=== PATIENT | female | born 1960 | race African-American/Black ===

== ENCOUNTER 2016-07-27 11:15 | Inpatient (IN) ==
--- NOTE | 2016-07-27 12:29 | Emergency Department Note ---
Arrival - Arrival Chief Complaint: Extremity Injury Stated Complaint: foot swollen and sore ED Nursing Triage Note: left foot pain - pt states that she dropped a cam on her foot on July 06 rd - pt amb into triage Mode of Arrival: Ambulatory Limitations: No Limitations Source: Patient, RN Notes Reviewed Time Seen by Provider: 07/27/16 11:52 - History of Present Illness HPI Narrative: 56-year-old black female presents to ED with chief complaint of left foot pain. Patient states she dropped a large can of green beans on her foot on July 06. She has not had any treatment since then. States that it started looking worse on Monday, so she sought treatment today. Previous medical history significant for hypertension and insulin-dependent diabetes mellitus. PCP is [facility]. Date of Last Menstrual Period: hyster Allergies/Adverse Reactions: Allergies Allergy/AdvReac Type Severity Reaction Status Date / Time No Known Allergies Allergy Unverified 07/27/16 11:17 Review of System - Review of System 12 point system: reviewed and no additional remarkable complaints except as stated - Review of System Constitutional: Absent: fever Musculoskeletal: Present: as per HPI, other (Left foot pain) Skin: Present: as per HPI, change in color Medical,Surgical,& Family Hx - Medical History Cardio: History of: Hypertension Endocrine: History of: Diabetes Mellitus (IDDM) - Social History Smoking Status: Never smoker Frequency of Alcohol Use: None Type of Drug Use: None Exam Physical Examination: - General General appearance: alert, in no apparent distress - Head Head exam: Present: atraumatic, normocephalic, normal inspection - Eye Eye exam: Present: normal appearance, PERRL, EOMI - Neck Neck exam: Present: normal inspection, full ROM - Chest Chest inspection: Present: normal appearance, symmetric chest rise - Respiratory Respiratory exam: Present: normal lung sounds bilaterally. Absent: accessory muscle use, rales, respiratory distress, rhonchi, wheezes - Cardiovascular Cardiovascular exam: Present: regular rate, normal rhythm, normal heart sounds - Abdominal Exam Abdominal exam: Present: soft, normal bowel sounds - Extremities Exam Extremities exam: Present: Distal area of left foot with multiple ulcers, skin has peeled off, second toe becoming gangrenous, toe is soft to palpation, no circulation present. - Back Exam Back exam: Present: normal inspection, full ROM - Neurological Exam Neurological exam: Present: alert, oriented X3 Absent: motor sensory deficit - Psychiatric Psychiatric exam: Present: normal affect, normal mood - Skin Skin exam: Present: warm, dry, intact Vital Signs: Vital Signs Temperature 97.8 F 07/27/16 11:25 Pulse Rate 98 H 07/27/16 11:25 Respiratory Rate 20 07/27/16 11:25 Blood Pressure 140/98 07/27/16 11:25 O2 Sat by Pulse Oximetry 99 07/27/16 11:18 Course - Consultations Time: 13:14 (Kristi at Dr. Rothman's office notified of patinet presence and status. Dr. Rothman wants general surgery to handle case.) Time: 13:20 (Dr. Stoll notified of pt presence and status.) Time: 13:40 (Rivera (Dr. Dunn's PA) here to see patient. ) Additional Consultation(s): 1440: Dr. Stoll here to see patient. Will admit and take to surgery. Results - Labs CBC & BMP: 07/27/16 13:29 07/27/16 13:29 Lab Results: I have reviewed the patients labs - Diagnostic Findings Procedure: X-ray: report reviewed by me, image reviewed by me (Subtle subcutaneous emphysema within the interspace of the first and second digits suspicious for laceration or infection. No radiopaque foreign body demonstrated. No acute fracture demonstrated. There is flexion deformity at the DIP joint of the second digit. Plantar calcaneal spurring noted.) Disposition Clinical Impression: Diabetic wet gangrene of the foot Case discussed with: patient Disposition: Still a Patient Condition: Stable
--- NOTE | 2016-07-27 12:38 | XRay Report ---
XR foot 3V LT Indication: Injury Comparison: None Technique: Frontal, lateral, and oblique views of the left foot Findings: Subtle subcutaneous emphysema within the interspace of the first and second digits suspicious for laceration or infection. No radiopaque foreign body demonstrated. No acute fracture demonstrated. There is flexion deformity at the DIP joint of the second digit. Plantar calcaneal spurring noted. IMPRESSION: As above. PROCEDURE INTERPRETED AT [facility] DEPARTMENT OF RADIOLOGY Final Report Signed by: Dr Barrett Torres
[2016-07-27 13:38] LABS: Basophils # 0.1 10*3/uL (0.0-0.2); Basophils % 0.5 % (0.0-0.8); Eosinophils # 0.1 10*3/uL (0.0-0.87); Hematocrit 32.6 VOL% (35.7-47.0); Hemoglobin 10.9 GM/DL (12.0-16.0); Immature Granulocytes % 1.1 %; Immature Granulocytes Absolute 0.11 #; Lymphocytes # 1.6 10*3/uL (1.4-4.0); Lymphocytes % 15.5 % (21.3-54.2); Mean Corpuscular HGB Conc 33.4 GM/DL (32-36); Mean Corpuscular Hemoglobin 30 PG (27-34); Mean Corpuscular Volume 89.6 FL (87-102); Mean Platelet Volume 9.2 FL (9.6-12.0); Monocytes # 0.7 10*3/uL (0.11-0.8); Monocytes % 6.6 % (1.7-12.7); Neutrophils # 7.7 10*3/uL (1.4-7.4); Neutrophils % 75.3 % (38.7-73.9); Platelet Count 463 T/CUMM (130-400); Red Blood Count 3.64 MC/CUMM (3.8-5.5); Red Cell Distribution Width 12.6 % (9.3-17.3); White Blood Count 10.2 T/CUMM (4-12)
[2016-07-27 14:03] LABS: Alanine Aminotransferase 14 U/L (13-56); Albumin 2.9 G/DL (3.4-5.0); Alkaline Phosphatase 112 U/L (45-117); Aspartate Amino Transferase 10 U/L (0-37); Bilirubin,Total < 0.39 MG/DL (0.2-1.0); Blood Urea Nitrogen 13 MG/DL (7-18); Calcium 9.1 MG/DL (8.5-10.1); Glucose 482 MG/DL (74-106); Osmolality,Calculated 282.7 MOS/KG (273-304); Potassium 4.1 MMOL/L (3.5-5.1); Sodium 131 MMOL/L (136-145); Total Protein 9.1 G/DL (6.4-8.3)
--- NOTE | 2016-07-27 14:23 | XRay Report ---
XR chest 2V Indication: Recent pneumonia Comparison: Chest x-ray dated July 19, 2010 Technique: Frontal and lateral views of the chest. Findings: The cardiomediastinal silhouette is stable in configuration. No focal consolidation, pleural effusion, or pneumothorax. Visualized osseous and surrounding soft tissue structures appear grossly unchanged. Continued dextroconvex curvature of the spine. IMPRESSION: Stable chest x-ray without acute cardiopulmonary process demonstrated. PROCEDURE INTERPRETED AT [facility] DEPARTMENT OF RADIOLOGY Final Report Signed by: Dr Barrett Torres
[2016-07-27] MEDS ORDERED: SODIUM CHLORIDE 0.9% 1,000 ML IV STA (14:25)
--- NOTE | 2016-07-27 14:31 | General Surg History&Physical ---
Assessment and Plan (1) Diabetic wet gangrene of the foot Status: Acute Assessment and plan: Patient has wet gangrene of the second toe and abscess formation of the proximal second toe suspected track into the first webspace. At this point, surgical intervention is recommended to prevent further progression of the infection and or destruction of soft tissue which may result in more loss of the foot. Patient will require at least partial second toe amputation perhaps total as well as irrigation and debridement of abscess formation of the left foot. The indications for the procedure as well as the alternative treatment options were reviewed with patient including but limited to worsening infection , further loss of foot and lower extremity, blood infection, functional loss, gait disturbance, wound healing complications, the need for further procedures, reactions to medications, pneumonia, heart attack, stroke, pneumothorax, hemothorax, and other unforeseeable cardiac, pulmonary and/or neurologic including the risk of . We will check a chest x-ray prior considering her recent pneumonia and I recommend aggressive incentive spirometry and mobility postoperatively. Current Visit: Yes (2) Hyperglycemia due to type 2 diabetes mellitus Status: Acute Assessment and plan: Patient with hyperglycemia with reported well-controlled diabetes mellitus in a seemingly reliable patient. Treating factors are likely in this active infection as well as recent corticosteroid treatment. We will push normal saline and provide sliding scale insulin to try to get his blood sugars better controlled. Current Visit: Yes (3) Hyponatremia Status: Acute Assessment and plan: Likely pseudohyponatremia secondary to hyperglycemia. Treat with IV fluids and monitor as above. Current Visit: Yes (4) Elevated serum creatinine Status: Acute Assessment and plan: No comparison labs. May be chronic considering patient's history of diabetes hypertension or acute. We will hydrate, avoid nephrotoxic agents, and monitor renal function, electrolytes, and urine output. Current Visit: Yes (5) Hypertension Status: Acute Assessment and plan: Resume home meds postoperatively Current Visit: Yes (6) Prophylactic measure Status: Acute Assessment and plan: #1 DVT prophylaxis: SCDs intra-and postoperatively. Start chemoprophylaxis postop day #1 with out evidence of active bleeding. #2. GI prophylaxis: PPI daily Current Visit: Yes History of Present Illness Chief complaint: Toe pain History of present illness: Ms. Vasquez is a 56 year old female with past medical history of hypertension and insulin-dependent diabetes mellitus who reports she dropped a can of green beans in her left foot on July 06, 2016. She subsequently had pain and swelling which have slowly resolved until a few days ago at which time she noted increased swelling, erythema, and pain as well as discoloration associated with the left foot. She denies fever, chills, rigors, nausea, vomiting or diarrhea. She denies previous foot infection or problems with diabetic ulcers of her feet although she does report bilateral peripheral neuropathy. She reports her fasting blood glucose levels typically run in the low 100s below 150, although they have been higher in the past few days, which she attributes to infection as well as recent corticosteroid treatment. She did recently complete treatment for pneumonia approximately 4 days ago which included azithromycin, in office injection of Rocephin and corticosteroid injection. She reports mild residual cough without production, dyspnea, or pleuritic chest pain. Patient has no cardiac history or complaints of chest pain, palpitations, orthopnea or PND. 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 Absent: distended, firm , tenderness - Extremities Exam Extremities exam: Present: other (LLE: Gangrene noted with the left second toe with purulence evident from the second toe into the first webspace which is expressible. This likely tracks on the plantar surface of the forefoot just proximal to the third and fourth toes with which have associated erythema. Great toe erythema is also associated. There is also noted in the first webspace which is likely where the abscesses attempted to drain from. Dorsalis pedis pulses are 1+. Brisk capillary refill was noted in toes 1, and 3 through 5; again the second great toe of the middle and distal phalanges are not likely viable. ) - Neurological Exam Neurological exam: Present: alert, oriented X3 Speech: Present: normal - Skin Skin exam: Present: normal color, warm - Constitutional Constitutional: Present: as per HPI - Cardiovascular Cardiovascular: Present: as per HPI - Respiratory Respiratory: Present: as per HPI - Gastrointestinal Gastrointestinal: Present: as per HPI - Musculoskeletal Musculoskeletal: Present: as per HPI - Neurological Neurological: Present: as per HPI Hematologic/Lymphatic: Absent: easy bleeding, easy bruising Results - Labs CBC & BMP: 07/27/16 13:29 07/27/16 13:29 Labs: Lactic acid pending - Diagnostic Findings Procedure: X-ray: image reviewed by me, report reviewed by me (Foot - soft tissue evidence of abscess in 1st webspace; no clear evidence of osteomyelitis)
[2016-07-27] MEDS ORDERED: CEFTAROLINE 600 MG in SODIUM CHLORIDE 0.9% 100 ML IV STA (14:42)
[2016-07-27] MEDS ORDERED: SODIUM CHLORIDE 0.9% 1,000 ML IV SCH (15:00)
[2016-07-27] MEDS ORDERED: INSULIN REGULAR 100 UNIT/ML SUBCUT STA (15:17)
[2016-07-27] MEDS ORDERED: INSULIN REGULAR 100 UNIT/ML ONE (15:18)
[2016-07-27] MEDS ORDERED: CEFTAROLINE 600 MG VIAL IV ONE (15:22)
[2016-07-27] MEDS ORDERED: SODIUM CHLORIDE 0.9% 100 ML IV ONE (15:23)
[2016-07-27] MEDS ORDERED: LIDOCAINE 1% 5 ML VIAL ONE (18:30)
[2016-07-27] MEDS ORDERED: KETOROLAC 30 MG/1 ML VIAL ONE (18:30)
[2016-07-27] MEDS ORDERED: PHENYLEPHRINE 1 MG/10 ML SYRINGE IV ONE (18:30)
[2016-07-27] MEDS ORDERED: PROPOFOL 200 MG/20 ML VIAL IV ONE (18:30)
[2016-07-27] MEDS ORDERED: ONDANSETRON 4 MG/2 ML VIAL ONE (18:30)
[2016-07-27] MEDS ORDERED: BUPIVACAINE 0.25% 50 ML VIAL ONE (18:31)
--- NOTE | 2016-07-27 19:21 | Anesthesia Post-Op ---
Anesthesia Post OP - Post Ansesthetic Evaluation Patient seen in post op: Yes Resp: within normal limits CV: within normal limits Mental: within normal limits Temp: within normal limits [id number]: within normal limits Nausea and Vomiting: within normal limits Pain: within normal limits
[2016-07-27] MEDS ORDERED: SEVOFLURANE 1 UNIT/15 MINUTE INH ONE (19:25)
[2016-07-27] MEDS ORDERED: LACTATED RINGERS 1,000 ML IV ONE (19:26)
[2016-07-27] MEDS ORDERED: fentaNYL 100 MCG/2 ML VIAL ONE (19:26)
[2016-07-27] MEDS ORDERED: MIDAZOLAM 2 MG/2 ML VIAL ONE (19:26)
--- NOTE | 2016-07-27 19:43 | Operative Note ---
Date of procedure: 07/27/16 Pre-op diagnosis: Left second toe wet gangrene Post-op diagnosis: same Procedure: Preoperative diagnosis Left second toe wet gangrene Postoperative diagnosis Same Procedures performed Left second toe toe ray amputation Findings Left second toe wet gangrene with viable tissue at the base of the toe and second metatarsal head. Complications None apparent Specimen Left second toe Blood loss 10 mL Indications Left second toe wet gangrene. The risks, benefits, and alternatives of the operation were discussed with the patient and family. The risk of phantom pain and need for higher amputation were discussed in detail and elected to proceed. Their questions were answered. Description of procedure Patient was taken to the operating room and transferred to the operating table in the supine position. The left leg was prepped with Betadine and draped sterilely. Preoperative antibiotics were administered and timeout was performed. Local anesthetic was administered around the left second toe. An elliptical skin incision was then made with a 15 blade scalpel and the toe was amputated at the metatarsal phalangeal joint. There was viable tissue at the margins of the wound. There was good blood supply. A rongeur was used to debride the bone back past the capsule of the metatarsal head. The foot was dressed with dry gauze dressing between the toes, cast padding, and Coban. The patient was awakened from anesthesia and transferred to recovery. Postoperative plan Continue wound care and antibiotics Follow-up cultures Anesthesia: ANDREIAA Surgeon / Physician: Minh Stoll Estimated blood loss: minimal Specimens: other (left second toe) Condition: stable Disposition: PACU Results - Labs CBC & BMP: 07/27/16 13:29 07/27/16 13:29
[2016-07-27] MEDS ORDERED: GLUCAGON 1 MG VIAL IM PRN ×2 (19:57)
[2016-07-27] MEDS ORDERED: PROMETHAZINE 25 MG/1 ML VIAL IM PRN (19:57)
[2016-07-27] MEDS ORDERED: ONDANSETRON 4 MG/2 ML VIAL IV PRN (19:57)
[2016-07-27] MEDS ORDERED: HYDROmorphone 2 MG/1 ML VIAL IV PRN (19:57)
[2016-07-27] MEDS ORDERED: DEXTROSE 50% 25 GM/50 ML VIAL IV PRN ×2 (19:57)
[2016-07-27] MEDS: LACTATED RINGERS 1,000 ML IV SCH (20:00)
[2016-07-27] MEDS: INSULIN REGULAR 100 UNIT/ML SUBCUT SCH (21:59)
[2016-07-28] MEDS: LACTATED RINGERS 1,000 ML IV SCH (04:00)
[2016-07-28] MEDS ORDERED: NON-FORMULARY MEDICATION (Empagliflozin [Jardiance] 10 MG) PO SCH (09:00)
[2016-07-28 09:18] LABS: Basophils % 0.4 % (0.0-0.8); Eosinophils # 0.1 10*3/uL (0.0-0.87); Eosinophils % 1.6 % (0.00-10.9); Hematocrit 29.4 VOL% (35.7-47.0); Hemoglobin 9.6 GM/DL (12.0-16.0); Immature Granulocytes % 0.7 %; Immature Granulocytes Absolute 0.05 #; Lymphocytes # 1.3 10*3/uL (1.4-4.0); Lymphocytes % 18.7 % (21.3-54.2); Mean Corpuscular HGB Conc 32.7 GM/DL (32-36); Mean Corpuscular Hemoglobin 29 PG (27-34); Mean Corpuscular Volume 89.9 FL (87-102); Mean Platelet Volume 9.1 FL (9.6-12.0); Monocytes # 0.3 10*3/uL (0.11-0.8); Monocytes % 4.7 % (1.7-12.7); Neutrophils % 73.9 % (38.7-73.9); Platelet Count 398 T/CUMM (130-400); Red Blood Count 3.27 MC/CUMM (3.8-5.5); Red Cell Distribution Width 12.7 % (9.3-17.3); White Blood Count 6.8 T/CUMM (4-12)
[2016-07-28 09:43] LABS: Potassium 4.4 MMOL/L (3.5-5.1)
[2016-07-28] MEDS: INSULIN REGULAR 100 UNIT/ML SUBCUT SCH ×4 (09:43→22:27)
[2016-07-28] MEDS: VALSARTAN 160 MG TABLET PO SCH (09:45)
[2016-07-28] MEDS: GABAPENTIN 400 MG CAPSULE PO SCH ×2 (09:46→22:32)
[2016-07-28] MEDS: hydroCHLOROthiazide 12.5 MG CAPSULE PO SCH (09:46)
[2016-07-28] MEDS: MONTELUKAST 10 MG TABLET PO SCH (09:46)
[2016-07-28] MEDS: CEFTAROLINE 600 MG in SODIUM CHLORIDE 0.9% 100 ML IV SCH ×2 (09:57→22:26)
--- NOTE | 2016-07-28 12:14 | Event Note ---
General Surgery Progress Note Chief complaint This patient is a 56-year-old woman admitted with a wet gangrene of the left second toe treated with ray amputation on 07/27/2016 Interval history No events overnight. Glucose is 189 on the last CBG. No labs were done this morning. Patient is afebrile and her pain is well controlled. Physical exam Afebrile, normal vital signs Chest is clear Heart is regular Abdomen is soft and nontender Left foot amputation site is clean. There is some slightly onofre tissue at the base of the wound but most of it bleeds well and there is no evidence of pus or undrained infection. There is no vijaya necrotic tissue. Labs Pending, CBG 189 Imaging None new Assessment and plan Continue wound care and antibiotics Follow-up labs today Repeat labs tomorrow and monitor wound for 1 more day Home health consult
[2016-07-28] MEDS: ENOXAPARIN 40 MG/0.4 ML SYRINGE SUBCUT SCH (14:16)
[2016-07-28] MEDS ORDERED: INSULIN DEGLUDEC 10 UNIT SQ SCH (21:00)
[2016-07-29 06:55] LABS: Basophils % 0.7 % (0.0-0.8); Eosinophils # 0.2 10*3/uL (0.0-0.87); Eosinophils % 3.2 % (0.00-10.9); Hematocrit 28.2 VOL% (35.7-47.0); Hemoglobin 9.2 GM/DL (12.0-16.0); Immature Granulocytes % 0.7 %; Immature Granulocytes Absolute 0.04 #; Lymphocytes # 1.8 10*3/uL (1.4-4.0); Lymphocytes % 31.4 % (21.3-54.2); Mean Corpuscular HGB Conc 32.6 GM/DL (32-36); Mean Corpuscular Hemoglobin 29 PG (27-34); Mean Corpuscular Volume 89.8 FL (87-102); Mean Platelet Volume 9.2 FL (9.6-12.0); Monocytes # 0.4 10*3/uL (0.11-0.8); Monocytes % 7.5 % (1.7-12.7); Neutrophils # 3.3 10*3/uL (1.4-7.4); Neutrophils % 56.5 % (38.7-73.9); Platelet Count 389 T/CUMM (130-400); Red Blood Count 3.14 MC/CUMM (3.8-5.5); Red Cell Distribution Width 12.6 % (9.3-17.3); White Blood Count 5.9 T/CUMM (4-12)
[2016-07-29 07:34] LABS: Calcium 8.1 MG/DL (8.5-10.1); Magnesium 2.4 MG/DL (1.8-2.4); Osmolality,Calculated 276.4 MOS/KG (273-304); Potassium 4.3 MMOL/L (3.5-5.1)
--- NOTE | 2016-07-29 09:11 | Event Note ---
General Surgery Progress Note Chief complaint This patient is a 56-year-old woman admitted with a wet gangrene of the left second toe treated with ray amputation on 07/27/2016 Interval history No events overnight. Pain is well controlled. No fevers. Labs are stable. Physical exam Afebrile, normal vital signs Chest is clear Heart is regular Abdomen is soft and nontender Left foot amputation site is clean. The wound looks healthy with no necrotic tissue or purulent drainage. Labs Reviewed Imaging None new Assessment and plan Discharge home today with follow-up with me next week. We will have the patient do once daily Dakin's wet to dry dressings and put her on clindamycin and Levaquin until she comes back to see me.
[2016-07-29] MEDS: INSULIN REGULAR 100 UNIT/ML SUBCUT SCH ×2 (09:46→12:58)
[2016-07-29] MEDS: ENOXAPARIN 40 MG/0.4 ML SYRINGE SUBCUT SCH (10:30)
[2016-07-29] MEDS: CEFTAROLINE 600 MG in SODIUM CHLORIDE 0.9% 100 ML IV SCH (10:30)
[2016-07-29] MEDS: GABAPENTIN 400 MG CAPSULE PO SCH (10:41)
[2016-07-29] MEDS: MONTELUKAST 10 MG TABLET PO SCH (10:41)
[2016-07-29] MEDS: VALSARTAN 160 MG TABLET PO SCH (10:42)
[2016-07-29] MEDS: hydroCHLOROthiazide 12.5 MG CAPSULE PO SCH (10:42)
--- NOTE | 2016-07-29 11:11 | Discharge Summary ---
Hospital Course - Hospital Course Hospital Course: The patient is 56 y/o IDDM female who presented with wet gangrene of left 2nd toe for which she underwent debridement and amputation. The patient initially had mild BRIANNA and pseudohyponatremia associated elevated blood glucose which resolved after surger and with fluid resuscitation. No complication in p/o period. Blood cultures preliminarily negative. Patient discharged home in good condition with oral antibiotics, wound care instructions to be performed by spouse, and follow-up planned with Dr. Stoll. Diagnosis - Discharge Diagnosis (1) Diabetic wet gangrene of the foot Status: Acute (2) Hyperglycemia due to type 2 diabetes mellitus Status: Acute (3) Hyponatremia Status: Acute (4) Elevated serum creatinine Status: Acute (5) Hypertension Status: Acute Specialty Discharge - Follow Up or Referrals Follow up with: Minh Stoll MD [Physician] - 08/04/16 9:00 am Discharge Plan - Discharge Data Disposition: Disch To Home/Self Care Condition at Discharge: Stable Discharge Diet: diabetic diet Activity: resume usual activities as tolerated, other (No prolonged standing or ambulating) Hygiene: may shower, keep area(s) dry Driving: other (No driving while taking narcotics) Contact your physician if you experience:: fever over 101, Difficulty voiding, Redness or swelling, Nausea/Vomiting, Shortness of breath, Bleeding, pain uncontrolled by pain medications Wound / Dressing Care Instructions: -Clean wound with dakins daily. -Reapply dakins moistened gauze. -Drape gauze loosely between toes. -Wrap foot with cast padding and nathan wrap - Discharge Medications New Clindamycin HCl [Clindamycin Cap] 300 mg PO Q8HR #21 capsule levoFLOXacin [Levaquin] 500 mg PO DAILY #7 tablet HYDROcodone/ACETAMIN 7.5-325 [Bend 7.5-325] 1 tablet PO Q4H PRN #30 tablet PRN Reason: Pain Moderate To Severe (4-10) Continue Montelukast Tab [Singulair Tab] 10 mg PO DAILY Sitagliptin Phos/Metformin HCl [Janumet 50-500 mg Tablet] 1 each PO BID Insulin Degludec [Tresiba Flextouch U-100] 10 unit SQ BEDTIME Gabapentin [Neurontin] 800 mg PO BID Empagliflozin [Jardiance] 10 mg PO DAILY Valsartan/Hydrochlorothiazide [Diovan Hct 320-12.5 mg Tab] 1 each PO DAILY - Follow Up or Referral Follow Up: Minh Stoll MD [Physician] - 08/04/16 9:00 am - Forms/Instructions Exam - Constitutional Vitals: Period Temp Pulse Resp BP Sys/Mayer Pulse Ox Last 24 Hr 97 F-98.2 F 82-88 16-20 150-160/66-83 96-100 General appearance: no acute distress - Head Head exam: Present: normal inspection, normocephalic - Eye Eye exam: Absent: conjunctival injection, scleral icterus - Respiratory Respiratory exam: Present: clear to auscultation bilaterally - Cardiovascular Cardiovascular exam: Present: regular rate and rhythm - GI/Abdominal GI/Abdominal exam: Present: normal bowel sounds, soft. Absent: tenderness - Neurological Exam Neurological exam: Present: alert, oriented X3 - Psychiatric Psychiatric exam: Present: normal affect, normal mood Discharge Results Procedures and tests throughout hospitalization: Pending Orders 07/27/16 13:45 Blood Culture Stat Blood culture no growth at one day Labs on day of discharge: Labs from last 24 hours 07/29/16 07/29/16 07/28/16 05:54 05:54 18:51 WBC 5.9 RBC 3.14 L Hgb 9.2 L Hct 28.2 L MCV 89.8 MCH 29 MCHC 32.6 RDW 12.6 Plt Count 389 MPV 9.2 L Neut % (Auto) 56.5 Lymph % (Auto) 31.4 [place] % (Auto) 7.5 Eos % (Auto) 3.2 Baso % (Auto) 0.7 Neut # (Auto) 3.3 Lymph # (Auto) 1.8 [place] # (Auto) 0.4 Eos # (Auto) 0.2 Baso # (Auto) 0.0 Immature Gran % 0.7 Nucleated RBC % 0.0 Immature Gran # 0.04 Nucleated RBCs # 0.00 Sodium 140 Potassium 4.3 Chloride 104 Carbon Dioxide 30 Anion Gap 10.3 BUN 8 Creatinine 0.60 GFR Calculation 124 BUN/Creatinine Ratio 13.00 Glucose 101 POC Glucose 269 H Calculated Osmolality 276.4 Calcium 8.1 L Magnesium 2.4 07/28/16 07/28/16 07/28/16 15:40 10:42 07:51 WBC RBC Hgb Hct MCV MCH MCHC RDW Plt Count MPV Neut % (Auto) Lymph % (Auto) [place] % (Auto) Eos % (Auto) Baso % (Auto) Neut # (Auto) Lymph # (Auto) [place] # (Auto) Eos # (Auto) Baso # (Auto) Immature Gran % Nucleated RBC % Immature Gran # Nucleated RBCs # Sodium Potassium Chloride Carbon Dioxide Anion Gap BUN Creatinine GFR Calculation BUN/Creatinine Ratio Glucose POC Glucose 112 H 305 H 240 H Calculated Osmolality Calcium Magnesium 07/27/16 20:14 WBC RBC Hgb Hct MCV MCH MCHC RDW Plt Count MPV Neut % (Auto) Lymph % (Auto) [place] % (Auto) Eos % (Auto) Baso % (Auto) Neut # (Auto) Lymph # (Auto) [place] # (Auto) Eos # (Auto) Baso # (Auto) Immature Gran % Nucleated RBC % Immature Gran # Nucleated RBCs # Sodium Potassium Chloride Carbon Dioxide Anion Gap BUN Creatinine GFR Calculation BUN/Creatinine Ratio Glucose POC Glucose 80 Calculated Osmolality Calcium Magnesium Preliminary micro results at discharge 07/27/16 13:45 Blood Culture - Preliminary Blood No growth at 1 day 07/27/16 13:29 Blood Culture - Preliminary Blood No growth at 1 day - Imaging and Cardiology Procedure: Chest x-ray: image reviewed by me, report reviewed by me, X-ray: image reviewed by me, report reviewed by me (Foot) DS: Provider Date of admission: 07/27/16 14:50 Primary care physician: . No PCP Attending physician on admission: Minh Stoll MD Consults: 07/28/16 08:42 Consult to Case Mgmt/Social Srvs [CONS] Routine Reason for Case Mgmt/Social Srvs: Discharge Planning Consult Comment: home health services - wound care Discharging clinician: Krystal Harrison PA-C
--- NOTE | 2016-07-29 12:18 | Pathology Report from [facility] ---
[facility] ACCESSION # : [id number] PATIENT NAME : Karo Vasquez ORDERING DR : Minh Stoll MD CLINICAL HX: Left foot wet gangrene POST-OP DX: Same SPECIMEN INFO: Left second toe GROSS DESCRIPTION: Received in formalin labeled KARO VASQUEZ is a 5.5 x 1.8 x 3.2 cm portion of toe and distal metatarsal. The skin is markedly thickened and hard , onofre hayes with ulceration and gangrenous changes. Dwarf [employer]er sections are submitted in one cassette. DIAGNOSIS FOR KARO VASQUEZ: LEFT 2nd TOE AMPUTATION: Wet gangrene. COLLECTED DATE: 07/28/2016 [facility] REPORT DATE: 07/29/2016 ELECTRONICALLY SIGNED BY: Reji Quintana III, M.D. 07/29/2016 - 10:35:21 [facility]
[2016-07-29 12:46] VITALS: BP 179/79
== END 2016-07-29 14:10 | disposition home health service (06) | DRG 256 ==
LOC: N.ED 11:15 → N.EDINP 14:50 → N.2E 17:58
PROVIDERS: ADMIT Surgery; ATTEND Surgery

== ENCOUNTER 2018-10-06 22:06 | Inpatient (IN) ==
[2018-10-07 00:01] LABS: Basophils % 0.1 % (0.0-0.8); Hematocrit 28.9 VOL% (35.7-47.0); Hemoglobin 9.2 GM/DL (12.0-16.0); Immature Granulocytes % 0.9 %; Immature Granulocytes Absolute 0.12 #; Lymphocytes # 1.4 10*3/uL (1.4-4.0); Lymphocytes % 10.2 % (21.3-54.2); Mean Corpuscular HGB Conc 31.8 GM/DL (32-36); Mean Corpuscular Volume 91.7 FL (87-102); Mean Platelet Volume 10.1 FL (9.6-12.0); Monocytes % 7.7 % (1.7-12.7); Neutrophils % 81.1 % (38.7-73.9); Platelet Count 196 T/CUMM (130-400); Red Blood Count 3.15 MC/CUMM (3.8-5.5); Red Cell Distribution Width 15.4 % (9.3-17.3); White Blood Count 14.1 T/CUMM (4-12)
[2018-10-07 00:04] LABS: Albumin 3.1 G/DL (3.4-5.0); Bilirubin,Total 0.6 MG/DL (0.2-1.0); Calcium 8.4 MG/DL (8.5-10.1); Osmolality,Calculated 286.3 MOS/KG (273-304); Total Protein 7.1 G/DL (6.4-8.3)
[2018-10-07] MEDS ORDERED: CEFEPIME 2,000 MG in SODIUM CHLORIDE 0.9% 100 ML IV STA ×2 (00:07→00:09)
[2018-10-07] MEDS ORDERED: VANCOMYCIN INJ 1,000 MG in SODIUM CHLORIDE 0.9% 250 ML IV STA (00:07)
[2018-10-07] MEDS ORDERED: ZALEPLON 5 MG CAPSULE PO PRN (00:33)
[2018-10-07] MEDS ORDERED: GLUCAGON 1 MG VIAL IM PRN (00:33)
[2018-10-07] MEDS ORDERED: DEXTROSE 50% 25 GM/50 ML VIAL IV PRN (00:33)
[2018-10-07] MEDS ORDERED: ONDANSETRON 4 MG/2 ML VIAL IV PRN (00:33)
[2018-10-07] MEDS: SODIUM CHLORIDE 0.9% 1,000 ML IV SCH ×2 (02:35→22:40)
[2018-10-07] MEDS: INSULIN REGULAR 100 UNIT/ML SUBCUT SCH ×5 (02:55→21:33)
[2018-10-07 05:59] LABS: Basophils % 0.4 % (0.0-0.8); Eosinophils # 0.1 10*3/uL (0.0-0.87); Eosinophils % 0.5 % (0.00-10.9); Hemoglobin 10.2 GM/DL (12.0-16.0); Immature Granulocytes % 1.1 %; Immature Granulocytes Absolute 0.12 #; Lymphocytes # 2.1 10*3/uL (1.4-4.0); Lymphocytes % 19.8 % (21.3-54.2); Mean Corpuscular HGB Conc 31.9 GM/DL (32-36); Mean Corpuscular Volume 92.2 FL (87-102); Mean Platelet Volume 10.7 FL (9.6-12.0); Monocytes % 7.4 % (1.7-12.7); Neutrophils % 70.8 % (38.7-73.9); Platelet Count 164 T/CUMM (130-400); Red Blood Count 3.47 MC/CUMM (3.8-5.5); Red Cell Distribution Width 14.8 % (9.3-17.3); White Blood Count 10.6 T/CUMM (4-12)
[2018-10-07 06:39] LABS: Albumin 2.9 G/DL (3.4-5.0); Bilirubin,Total 1.7 MG/DL (0.2-1.0); Calcium 8.2 MG/DL (8.5-10.1); Osmolality,Calculated 284.1 MOS/KG (273-304); Total Protein 6.8 G/DL (6.4-8.3)
[2018-10-07] MEDS: PANTOPRAZOLE 40 MG TABLET PO SCH (08:53)
[2018-10-07] MEDS: ENOXAPARIN 40 MG/0.4 ML SYRINGE SUBCUT SCH (08:53)
[2018-10-07] MEDS: CEFEPIME 2,000 MG in SODIUM CHLORIDE 0.9% 100 ML IV SCH ×2 (08:53→15:18)
[2018-10-07] MEDS: VANCOMYCIN INJ 1,250 MG in SODIUM CHLORIDE 0.9% 250 ML IV SCH ×2 (10:01→21:35)
[2018-10-07 10:14] LABS: Apearance,Urine CLEAR (Clear); Bilirubin,Urine Negative (Negative); Blood, Urine Small mg/dL (Negative); Glucose,Urine (UA) >=500 mg/dL (Negative); Ketones,Urine 20 mg/dL (Negative); Nitrite,Urine Negative (Negative); Protein,Urine 30 MG/DL; RBC,Urine 14 /HPF (0-4); Squamous Epithelial Cell,Urine Occasional /HPF (0-10); Urine Color Yellow (Yellow); Urine Specific Gravity 1.026 (1.001-1.035); Urine Urobilinogen < 2.0 EU/DL (0.2-1.0); WBC,Urine <1 /HPF (0-6)
[2018-10-07] MEDS: ACETAMINOPHEN 325 MG TABLET PO PRN ×2 (16:39→22:20)
[2018-10-07] MEDS: GABAPENTIN 400 MG CAPSULE PO SCH (21:32)
[2018-10-07] MEDS: MONTELUKAST 10 MG TABLET PO SCH (21:32)
[2018-10-07] MEDS ORDERED: ACETAMINOPHEN 500 MG TABLET PO PRN (23:59)
[2018-10-08] MEDS: IBUPROFEN 400 MG TABLET PO PRN ×2 (00:16→21:35)
[2018-10-08] MEDS: CEFEPIME 2,000 MG in SODIUM CHLORIDE 0.9% 100 ML IV SCH ×2 (00:17→09:23)
[2018-10-08] MEDS: hydroCHLOROthiazide 12.5 MG CAPSULE PO SCH (09:19)
[2018-10-08] MEDS: PANTOPRAZOLE 40 MG TABLET PO SCH (09:19)
[2018-10-08] MEDS: LOSARTAN 25 MG TABLET PO SCH (09:19)
[2018-10-08] MEDS: GABAPENTIN 400 MG CAPSULE PO SCH ×2 (09:19→21:22)
[2018-10-08] MEDS: ASPIRIN EC 81 MG TABLET PO SCH (09:19)
[2018-10-08] MEDS: ENOXAPARIN 40 MG/0.4 ML SYRINGE SUBCUT SCH (09:19)
[2018-10-08] MEDS: INSULIN REGULAR 100 UNIT/ML SUBCUT SCH ×4 (09:24→21:30)
[2018-10-08] MEDS: SODIUM CHLORIDE 0.9% 1,000 ML IV SCH ×3 (09:25→20:40)
[2018-10-08] MEDS: VANCOMYCIN INJ 1,250 MG in SODIUM CHLORIDE 0.9% 250 ML IV SCH ×2 (10:52→23:34)
[2018-10-08] MEDS ORDERED: ALUMINUM/MAGNES/SIMETH MAX STR 30 ML UDCUP PO PRN (11:32)
[2018-10-08] MEDS: CEFEPIME 1,000 MG in SODIUM CHLORIDE 0.9% 100 ML IV SCH ×2 (14:44→21:20)
[2018-10-08] MEDS: MONTELUKAST 10 MG TABLET PO SCH (21:22)
[2018-10-09] MEDS: CEFEPIME 1,000 MG in SODIUM CHLORIDE 0.9% 100 ML IV SCH ×4 (03:55→22:20)
[2018-10-09 04:50] LABS: Basophils % 0.4 % (0.0-0.8); Eosinophils # 0.1 10*3/uL (0.0-0.87); Eosinophils % 1.9 % (0.00-10.9); Hemoglobin 8.7 GM/DL (12.0-16.0); Immature Granulocytes % 0.4 %; Immature Granulocytes Absolute 0.03 #; Lymphocytes # 1.7 10*3/uL (1.4-4.0); Lymphocytes % 22.8 % (21.3-54.2); Mean Corpuscular Volume 94.2 FL (87-102); Mean Platelet Volume 10.2 FL (9.6-12.0); Monocytes % 11.2 % (1.7-12.7); Neutrophils % 63.3 % (38.7-73.9); Platelet Count 205 T/CUMM (130-400); Red Blood Count 3.08 MC/CUMM (3.8-5.5); Red Cell Distribution Width 14.6 % (9.3-17.3); White Blood Count 7.5 T/CUMM (4-12)
[2018-10-09 05:17] LABS: Albumin 2.6 G/DL (3.4-5.0); Bilirubin,Total 0.5 MG/DL (0.2-1.0); Calcium 8.2 MG/DL (8.5-10.1); Osmolality,Calculated 280.1 MOS/KG (273-304); Total Protein 6.7 G/DL (6.4-8.3)
[2018-10-09] MEDS: GABAPENTIN 400 MG CAPSULE PO SCH ×2 (09:50→22:16)
[2018-10-09] MEDS: LOSARTAN 25 MG TABLET PO SCH (09:51)
[2018-10-09] MEDS: hydroCHLOROthiazide 12.5 MG CAPSULE PO SCH (09:51)
[2018-10-09] MEDS: PANTOPRAZOLE 40 MG TABLET PO SCH (09:51)
[2018-10-09] MEDS: ASPIRIN EC 81 MG TABLET PO SCH (09:51)
[2018-10-09] MEDS: ENOXAPARIN 40 MG/0.4 ML SYRINGE SUBCUT SCH (09:52)
[2018-10-09] MEDS: INSULIN REGULAR 100 UNIT/ML SUBCUT SCH ×4 (09:55→22:15)
[2018-10-09] MEDS: SODIUM CHLORIDE 0.9% 1,000 ML IV SCH (14:59)
[2018-10-09] MEDS ORDERED: VANCOMYCIN INJ 1,250 MG in SODIUM CHLORIDE 0.9% 250 ML IV SCH (18:00)
[2018-10-09] MEDS: MONTELUKAST 10 MG TABLET PO SCH (22:17)
[2018-10-10] MEDS: CEFEPIME 1,000 MG in SODIUM CHLORIDE 0.9% 100 ML IV SCH (03:00)
[2018-10-10 05:05] LABS: Basophils % 0.5 % (0.0-0.8); Eosinophils # 0.1 10*3/uL (0.0-0.87); Eosinophils % 2.5 % (0.00-10.9); Hematocrit 28.7 VOL% (35.7-47.0); Immature Granulocytes % 0.5 %; Immature Granulocytes Absolute 0.03 #; Lymphocytes # 1.4 10*3/uL (1.4-4.0); Lymphocytes % 25.7 % (21.3-54.2); Mean Corpuscular HGB Conc 31.4 GM/DL (32-36); Mean Corpuscular Volume 90.8 FL (87-102); Mean Platelet Volume 9.9 FL (9.6-12.0); Monocytes % 12.6 % (1.7-12.7); Neutrophils % 58.2 % (38.7-73.9); Platelet Count 216 T/CUMM (130-400); Red Blood Count 3.16 MC/CUMM (3.8-5.5); Red Cell Distribution Width 14.1 % (9.3-17.3); White Blood Count 5.6 T/CUMM (4-12)
[2018-10-10 05:40] LABS: Albumin 2.6 G/DL (3.4-5.0); Bilirubin,Total 0.5 MG/DL (0.2-1.0); Calcium 8.5 MG/DL (8.5-10.1); Osmolality,Calculated 280.3 MOS/KG (273-304); Total Protein 6.9 G/DL (6.4-8.3)
[2018-10-10] MEDS: SODIUM CHLORIDE 0.9% 1,000 ML IV SCH (06:09)
[2018-10-10] MEDS: POTASSIUM CHLORIDE 20 MEQ TABLET PO PRN ×2 (06:10→08:15)
[2018-10-10] MEDS: INSULIN REGULAR 100 UNIT/ML SUBCUT SCH (07:24)
[2018-10-10 07:37] VITALS: BP 167/67
[2018-10-10] MEDS: ASPIRIN EC 81 MG TABLET PO SCH (08:15)
[2018-10-10] MEDS: LOSARTAN 25 MG TABLET PO SCH (08:15)
[2018-10-10] MEDS: hydroCHLOROthiazide 12.5 MG CAPSULE PO SCH (08:15)
[2018-10-10] MEDS: PANTOPRAZOLE 40 MG TABLET PO SCH (08:15)
[2018-10-10] MEDS: GABAPENTIN 400 MG CAPSULE PO SCH (08:16)
[2018-10-10] MEDS: ENOXAPARIN 40 MG/0.4 ML SYRINGE SUBCUT SCH (08:16)
[2018-10-10] MEDS ORDERED: LEVOFLOXACIN 750 MG TABLET PO SCH (09:00)
[2018-10-10] MEDS ORDERED: CLINDAMYCIN 300 MG CAPSULE PO SCH (12:00)
== END 2018-10-10 10:00 | disposition home or self-care (01) | DRG 638 ==
LOC: N.ED 22:06 → N.EDINP 10-07 00:33 → SUATTDRO 10-07 00:33 → N.3E 10-07 01:48
PROVIDERS: ADMIT Family Medicine; ATTEND Internal Medicine

== ENCOUNTER 2019-02-03 17:14 | Inpatient (IN) ==
[2019-02-03 18:55] LABS: Basophils % 0.1 % (0.0-0.8); Eosinophils % 0.1 % (0.00-10.9); Hematocrit 22.7 VOL% (35.7-47.0); Hemoglobin 7.2 GM/DL (12.0-16.0); Immature Granulocytes % 0.8 %; Immature Granulocytes Absolute 0.13 #; Mean Corpuscular HGB Conc 31.7 GM/DL (32-36); Mean Corpuscular Volume 86.6 FL (87-102); Mean Platelet Volume 10.2 FL (9.6-12.0); Platelet Count 389 T/CUMM (130-400); Red Blood Count 2.62 MC/CUMM (3.8-5.5); Red Cell Distribution Width 16.1 % (9.3-17.3); White Blood Count 16.4 T/CUMM (4-12)
[2019-02-03 19:17] LABS: Band Neutrophils 7 % (0-10); Lymphocytes 5 % (20-55); Segmented Neutrophils 78 % (50-85); Total Cells Counted 100
[2019-02-03 19:18] LABS: Hypochromasia 2+; Target Cells Few
[2019-02-03 19:19] LABS: Platelet Estimate Adequate; Schistocytes Few
[2019-02-03 19:22] LABS: Alanine Aminotransferase 16 U/L (13-56); Albumin 1.9 G/DL (3.4-5.0); Alkaline Phosphatase 110 U/L (45-117); Aspartate Amino Transferase 21 U/L (0-37); Bilirubin,Total < 0.39 MG/DL (0.2-1.0); Blood Urea Nitrogen 36 MG/DL (7-18); Calcium 8.1 MG/DL (8.5-10.1); Estimated Glom Filtration Rate 39 ML/MIN; Glucose 323 MG/DL (74-106); Osmolality,Calculated 285.4 MOS/KG (273-304); Total Protein 6.5 G/DL (6.4-8.3)
[2019-02-03] MEDS ORDERED: SODIUM CHLORIDE 0.9% IV STA (19:38)
[2019-02-03] MEDS ORDERED: VANCOMYCIN INJ 1,000 MG in SODIUM CHLORIDE 0.9% 250 ML IV STA (19:38)
[2019-02-03] MEDS ORDERED: SODIUM CHLORIDE 0.9% 1,000 ML IV STA (19:38)
[2019-02-03] MEDS ORDERED: DEXTROSE 50% 25 GM/50 ML VIAL IV PRN (20:23)
[2019-02-03] MEDS ORDERED: GLUCAGON 1 MG VIAL IM PRN (20:23)
[2019-02-03] MEDS ORDERED: ONDANSETRON 4 MG/2 ML VIAL IV PRN (20:23)
[2019-02-03] MEDS ORDERED: SODIUM CHLORIDE 0.9% 1,000 ML IV PRN (20:34)
[2019-02-03] MEDS: INSULIN LISPRO 100 UNIT/ML SUBCUT SCH (22:09)
[2019-02-03] MEDS: PIPERACILLIN/TAZOBACTAM 3,375 MG in SODIUM CHLORIDE 0.9% 100 ML IV SCH (22:42)
[2019-02-03] MEDS: SODIUM CHLORIDE 0.9% 1,000 ML IV SCH (22:42)
[2019-02-03] MEDS: MORPHINE 4 MG/1 ML VIAL IV PRN (23:04)
[2019-02-04] MEDS ORDERED: HYDROmorphone 2 MG/1 ML VIAL IV ONE (00:55)
[2019-02-04 04:29] LABS: Basophils % 0.2 % (0.0-0.8); Eosinophils % 0.2 % (0.00-10.9); Hematocrit 21.2 VOL% (35.7-47.0); Hemoglobin 6.9 GM/DL (12.0-16.0); Immature Granulocytes Absolute 0.16 #; Lymphocytes # 0.9 10*3/uL (1.4-4.0); Mean Corpuscular HGB Conc 32.5 GM/DL (32-36); Mean Corpuscular Volume 85.8 FL (87-102); Monocytes % 8.2 % (1.7-12.7); Neutrophils % 84.4 % (38.7-73.9); Platelet Count 360 T/CUMM (130-400); Red Blood Count 2.47 MC/CUMM (3.8-5.5); Red Cell Distribution Width 16.1 % (9.3-17.3); White Blood Count 15.4 T/CUMM (4-12)
[2019-02-04] MEDS ORDERED: SODIUM CHLORIDE 0.9% 1,000 ML IV PRN ×2 (04:37→11:59)
[2019-02-04 04:41] LABS: Osmolality,Calculated 292.3 MOS/KG (273-304)
[2019-02-04 05:02] LABS: Band Neutrophils 5 % (0-10); Hypochromasia 1+; Lymphocytes 8 % (20-55); Ovalocytes Slight; Platelet Estimate Adequate; Segmented Neutrophils 83 % (50-85); Total Cells Counted 100
[2019-02-04] MEDS: SODIUM CHLORIDE 0.9% 1,000 ML IV SCH ×4 (05:48→21:43)
[2019-02-04] MEDS: PIPERACILLIN/TAZOBACTAM 3,375 MG in SODIUM CHLORIDE 0.9% 100 ML IV SCH ×3 (06:17→21:38)
[2019-02-04] MEDS: INSULIN LISPRO 100 UNIT/ML SUBCUT SCH ×4 (08:22→21:40)
[2019-02-04 09:09] LABS: Hematocrit 26.1 VOL% (35.7-47.0); Hemoglobin 8.2 GM/DL (12.0-16.0)
[2019-02-04] MEDS: PANTOPRAZOLE 40 MG VIAL IV SCH (09:50)
[2019-02-04] MEDS: VANCOMYCIN INJ 1,250 MG in SODIUM CHLORIDE 0.9% 250 ML IV SCH (09:53)
[2019-02-04] MEDS: ENOXAPARIN 40 MG/0.4 ML SYRINGE SUBCUT SCH (12:39)
[2019-02-04 12:52] LABS: Hematocrit 26.3 VOL% (35.7-47.0); Hemoglobin 8.6 GM/DL (12.0-16.0)
[2019-02-04] MEDS ORDERED: BUPIVACAINE 0.5% 50 ML VIAL ONE (13:12)
[2019-02-04] MEDS ORDERED: LIDOCAINE 1%/EPI INJ 20 ML VIAL ONE (13:12)
[2019-02-04] MEDS ORDERED: PROPOFOL 200 MG/20 ML VIAL IV ONE (14:14)
[2019-02-04] MEDS ORDERED: MIDAZOLAM 2 MG/2 ML VIAL ONE (14:15)
[2019-02-04] MEDS ORDERED: SEVOFLURANE 1 UNIT/15 MINUTE INH ONE (14:15)
[2019-02-04] MEDS ORDERED: ONDANSETRON 4 MG/2 ML VIAL ONE (14:15)
[2019-02-04] MEDS ORDERED: PHENYLEPHRINE 1 MG/10 ML SYRINGE IV ONE (14:15)
[2019-02-04] MEDS ORDERED: fentaNYL 100 MCG/2 ML VIAL ONE (14:15)
[2019-02-04] MEDS ORDERED: LIDOCAINE 2% 5 ML VIAL ONE (14:15)
[2019-02-04] MEDS ORDERED: GLUCAGON 1 MG VIAL IM PRN (16:36)
[2019-02-04] MEDS ORDERED: DEXTROSE 50% 25 GM/50 ML VIAL IV PRN (16:36)
[2019-02-04] MEDS: MORPHINE 4 MG/1 ML VIAL IV PRN ×2 (16:50→21:39)
[2019-02-04 20:30] LABS: Hematocrit 26.3 VOL% (35.7-47.0); Hemoglobin 8.4 GM/DL (12.0-16.0)
[2019-02-05] MEDS: ACETAMINOPHEN 325 MG TABLET PO PRN (02:44)
[2019-02-05] MEDS: SODIUM CHLORIDE 0.9% 1,000 ML IV SCH ×2 (05:00→12:23)
[2019-02-05] MEDS: PIPERACILLIN/TAZOBACTAM 3,375 MG in SODIUM CHLORIDE 0.9% 100 ML IV SCH ×3 (05:36→22:07)
[2019-02-05 06:33] LABS: Basophils % 0.2 % (0.0-0.8); Eosinophils # 0.1 10*3/uL (0.0-0.87); Eosinophils % 0.7 % (0.00-10.9); Hematocrit 24.8 VOL% (35.7-47.0); Immature Granulocytes % 2.7 %; Immature Granulocytes Absolute 0.44 #; Lymphocytes # 1.3 10*3/uL (1.4-4.0); Lymphocytes % 7.9 % (21.3-54.2); Mean Corpuscular HGB Conc 32.3 GM/DL (32-36); Mean Corpuscular Volume 87.6 FL (87-102); Mean Platelet Volume 10.3 FL (9.6-12.0); Neutrophils % 81.5 % (38.7-73.9); Platelet Count 405 T/CUMM (130-400); Red Blood Count 2.83 MC/CUMM (3.8-5.5); Red Cell Distribution Width 16.9 % (9.3-17.3); White Blood Count 16.3 T/CUMM (4-12)
[2019-02-05 06:34] LABS: Hematocrit 27.7 VOL% (35.7-47.0); Hemoglobin 8.2 GM/DL (12.0-16.0)
[2019-02-05 06:57] LABS: Calcium 8.2 MG/DL (8.5-10.1); Osmolality,Calculated 289.4 MOS/KG (273-304)
[2019-02-05 07:04] LABS: Band Neutrophils 2 % (0-10); Hypochromasia 2+; Lymphocytes 6 % (20-55); Segmented Neutrophils 87 % (50-85); Total Cells Counted 100
[2019-02-05 07:05] LABS: Burr Cells Slight; Microcytosis 1+; Target Cells Slight
[2019-02-05] MEDS ORDERED: SODIUM HYPOCHLORITE 0.25% IRR 1 APPLIC in IV BAG 1 EACH IRRIG PRN (08:35)
[2019-02-05] MEDS: INSULIN LISPRO 100 UNIT/ML SUBCUT SCH ×4 (08:50→22:17)
[2019-02-05] MEDS: PANTOPRAZOLE 40 MG VIAL IV SCH (08:51)
[2019-02-05] MEDS: VANCOMYCIN INJ 1,250 MG in SODIUM CHLORIDE 0.9% 250 ML IV SCH (09:03)
[2019-02-05] MEDS: MORPHINE 4 MG/1 ML VIAL IV PRN ×2 (09:20→14:49)
[2019-02-05] MEDS: ENOXAPARIN 40 MG/0.4 ML SYRINGE SUBCUT SCH (11:04)
[2019-02-05 12:44] LABS: Hematocrit 26.2 VOL% (35.7-47.0); Hemoglobin 8.5 GM/DL (12.0-16.0)
[2019-02-05] MEDS ORDERED: CALCIUM CARBONATE CHEW 500 MG TABLET PO PRN (17:28)
[2019-02-05] MEDS: MONTELUKAST 10 MG TABLET PO SCH (22:07)
[2019-02-05] MEDS: GABAPENTIN 400 MG CAPSULE PO SCH (22:07)
[2019-02-06] MEDS: SODIUM CHLORIDE 0.9% 1,000 ML IV SCH ×3 (04:10→12:31)
[2019-02-06] MEDS: PIPERACILLIN/TAZOBACTAM 3,375 MG in SODIUM CHLORIDE 0.9% 100 ML IV SCH ×3 (05:29→21:07)
[2019-02-06] MEDS: GABAPENTIN 400 MG CAPSULE PO SCH ×2 (08:21→21:07)
[2019-02-06] MEDS: PANTOPRAZOLE 40 MG VIAL IV SCH (08:21)
[2019-02-06] MEDS: INSULIN LISPRO 100 UNIT/ML SUBCUT SCH ×4 (08:22→22:07)
[2019-02-06] MEDS: VANCOMYCIN INJ 1,250 MG in SODIUM CHLORIDE 0.9% 250 ML IV SCH (09:52)
[2019-02-06] MEDS: INSULIN GLARGINE 100 UNIT/ML SUBCUT SCH (09:52)
[2019-02-06] MEDS: ACETAMINOPHEN 325 MG TABLET PO PRN ×2 (10:55→16:11)
[2019-02-06] MEDS: ENOXAPARIN 40 MG/0.4 ML SYRINGE SUBCUT SCH (12:30)
[2019-02-06] MEDS ORDERED: POLYETHYLENE GLYCOL POWDER 17 GM PACK PO PRN (20:28)
[2019-02-06] MEDS: MONTELUKAST 10 MG TABLET PO SCH (21:07)
[2019-02-07] MEDS: ACETAMINOPHEN 325 MG TABLET PO PRN ×4 (01:39→20:13)
[2019-02-07] MEDS: SODIUM CHLORIDE 0.9% 1,000 ML IV SCH ×5 (04:09→20:14)
[2019-02-07] MEDS: VANCOMYCIN INJ 1,250 MG in SODIUM CHLORIDE 0.9% 250 ML IV SCH (04:43)
[2019-02-07 06:08] LABS: Basophils # 0.1 10*3/uL (0.0-0.2); Basophils % 0.4 % (0.0-0.8); Eosinophils # 0.2 10*3/uL (0.0-0.87); Hematocrit 23.2 VOL% (35.7-47.0); Hemoglobin 7.1 GM/DL (12.0-16.0); Immature Granulocytes % 4.8 %; Immature Granulocytes Absolute 0.73 #; Lymphocytes # 1.8 10*3/uL (1.4-4.0); Lymphocytes % 11.9 % (21.3-54.2); Mean Corpuscular HGB Conc 30.6 GM/DL (32-36); Mean Platelet Volume 9.6 FL (9.6-12.0); NRBC # 0.02 10*3/uL; Neutrophils % 71.9 % (38.7-73.9); Platelet Count 340 T/CUMM (130-400); Red Blood Count 2.55 MC/CUMM (3.8-5.5); Red Cell Distribution Width 17.3 % (9.3-17.3); White Blood Count 15.3 T/CUMM (4-12)
[2019-02-07 06:26] LABS: Calcium 7.7 MG/DL (8.5-10.1); Calcium 7.8 MG/DL (8.5-10.1); Osmolality,Calculated 286.3 MOS/KG (273-304); Osmolality,Calculated 286.4 MOS/KG (273-304)
[2019-02-07 06:50] LABS: Lymphocytes 11 % (20-55); Segmented Neutrophils 82 % (50-85); Total Cells Counted 100
[2019-02-07 06:51] LABS: Platelet Estimate Normal; Polychromasia Few
[2019-02-07] MEDS: PIPERACILLIN/TAZOBACTAM 3,375 MG in SODIUM CHLORIDE 0.9% 100 ML IV SCH ×3 (07:25→21:45)
[2019-02-07] MEDS: INSULIN LISPRO 100 UNIT/ML SUBCUT SCH ×4 (09:14→23:14)
[2019-02-07] MEDS: INSULIN GLARGINE 100 UNIT/ML SUBCUT SCH (09:14)
[2019-02-07] MEDS: GABAPENTIN 400 MG CAPSULE PO SCH ×2 (09:14→21:41)
[2019-02-07] MEDS: PANTOPRAZOLE 40 MG VIAL IV SCH (09:16)
[2019-02-07] MEDS: ENOXAPARIN 40 MG/0.4 ML SYRINGE SUBCUT SCH (11:59)
[2019-02-07] MEDS ORDERED: SODIUM CHLORIDE 0.9% 1,000 ML IV PRN ×2 (13:52→14:58)
[2019-02-07] MEDS: ALBUTEROL/IPRATROPIUM 3 ML NEB RESP TX SCH (20:08)
[2019-02-07] MEDS: MONTELUKAST 10 MG TABLET PO SCH (21:42)
[2019-02-08] MEDS: ALBUTEROL/IPRATROPIUM 3 ML NEB RESP TX SCH ×4 (00:33→20:30)
[2019-02-08] MEDS: VANCOMYCIN INJ 1,250 MG in SODIUM CHLORIDE 0.9% 250 ML IV SCH (01:45)
[2019-02-08] MEDS: PIPERACILLIN/TAZOBACTAM 3,375 MG in SODIUM CHLORIDE 0.9% 100 ML IV SCH ×2 (04:40→14:08)
[2019-02-08 07:56] LABS: Basophils # 0.1 10*3/uL (0.0-0.2); Basophils % 0.2 % (0.0-0.8); Eosinophils # 0.1 10*3/uL (0.0-0.87); Eosinophils % 0.3 % (0.00-10.9); Hemoglobin 8.6 GM/DL (12.0-16.0); Immature Granulocytes % 5.7 %; Immature Granulocytes Absolute 1.22 #; Lymphocytes % 9.3 % (21.3-54.2); Mean Corpuscular HGB Conc 31.9 GM/DL (32-36); Mean Corpuscular Volume 88.2 FL (87-102); Mean Platelet Volume 8.9 FL (9.6-12.0); Monocytes % 6.6 % (1.7-12.7); NRBC # 0.04 10*3/uL; Neutrophils % 77.9 % (38.7-73.9); Platelet Count 351 T/CUMM (130-400); Red Blood Count 3.06 MC/CUMM (3.8-5.5); Red Cell Distribution Width 17.3 % (9.3-17.3); White Blood Count 21.6 T/CUMM (4-12)
[2019-02-08 08:12] LABS: Calcium 7.9 MG/DL (8.5-10.1); Osmolality,Calculated 281.3 MOS/KG (273-304)
[2019-02-08 08:21] LABS: Band Neutrophils 3 % (0-10); Hypochromasia 1+; Lymphocytes 11 % (20-55); Platelet Estimate Adequate; Segmented Neutrophils 79 % (50-85); Total Cells Counted 100
[2019-02-08 08:22] LABS: Microcytosis 1+
[2019-02-08] MEDS: GABAPENTIN 400 MG CAPSULE PO SCH ×2 (10:13→20:54)
[2019-02-08] MEDS: PANTOPRAZOLE 40 MG VIAL IV SCH (10:14)
[2019-02-08] MEDS: INSULIN GLARGINE 100 UNIT/ML SUBCUT SCH (10:15)
[2019-02-08] MEDS ORDERED: METOPROLOL TARTRATE 5 MG/5 ML VIAL IV ONE (12:34)
[2019-02-08] MEDS: INSULIN LISPRO 100 UNIT/ML SUBCUT SCH ×4 (12:46→20:52)
[2019-02-08] MEDS: SODIUM CHLORIDE 0.9% 1,000 ML IV SCH (12:47)
[2019-02-08] MEDS: ENOXAPARIN 40 MG/0.4 ML SYRINGE SUBCUT SCH (12:48)
[2019-02-08] MEDS: ACETAMINOPHEN 325 MG TABLET PO PRN (16:32)
[2019-02-08] MEDS ORDERED: LIDOCAINE 2%/EPI 20 ML VIAL ONE (17:11)
[2019-02-08] MEDS ORDERED: KETAMINE 500 MG/10 ML VIAL ONE (18:11)
[2019-02-08] MEDS ORDERED: fentaNYL 100 MCG/2 ML VIAL ONE (18:12)
[2019-02-08] MEDS ORDERED: LIDOCAINE 2% 5 ML VIAL ONE (18:12)
[2019-02-08] MEDS ORDERED: PROPOFOL 200 MG/20 ML VIAL IV ONE (18:12)
[2019-02-08] MEDS ORDERED: MIDAZOLAM 2 MG/2 ML VIAL ONE (18:12)
[2019-02-08] MEDS ORDERED: SODIUM CHLORIDE 0.9% 100 ML IV ONE (18:13)
[2019-02-08] MEDS: MONTELUKAST 10 MG TABLET PO SCH (20:54)
[2019-02-09] MEDS: PIPERACILLIN/TAZOBACTAM 3,375 MG in SODIUM CHLORIDE 0.9% 100 ML IV SCH ×4 (00:55→23:57)
[2019-02-09] MEDS: ALBUTEROL/IPRATROPIUM 3 ML NEB RESP TX SCH ×4 (00:57→19:46)
[2019-02-09] MEDS: INSULIN LISPRO 100 UNIT/ML SUBCUT SCH ×4 (07:47→21:02)
[2019-02-09] MEDS: PANTOPRAZOLE 40 MG VIAL IV SCH (08:41)
[2019-02-09] MEDS: GABAPENTIN 400 MG CAPSULE PO SCH ×2 (08:42→21:07)
[2019-02-09] MEDS: INSULIN GLARGINE 100 UNIT/ML SUBCUT SCH (08:42)
[2019-02-09 12:15] LABS: Osmolality,Calculated 282.1 MOS/KG (273-304)
[2019-02-09] MEDS ORDERED: PROPOFOL 200 MG/20 ML VIAL IV ONE (12:46)
[2019-02-09] MEDS ORDERED: MIDAZOLAM 2 MG/2 ML VIAL ONE (12:47)
[2019-02-09 15:01] LABS: Basophils # 0.1 10*3/uL (0.0-0.2); Basophils % 0.2 % (0.0-0.8); Eosinophils # 0.1 10*3/uL (0.0-0.87); Eosinophils % 0.4 % (0.00-10.9); Hematocrit 26.5 VOL% (35.7-47.0); Hemoglobin 8.4 GM/DL (12.0-16.0); Immature Granulocytes Absolute 1.14 #; Lymphocytes # 1.6 10*3/uL (1.4-4.0); Lymphocytes % 6.8 % (21.3-54.2); Mean Corpuscular HGB Conc 31.7 GM/DL (32-36); Mean Platelet Volume 9.5 FL (9.6-12.0); Monocytes % 4.3 % (1.7-12.7); NRBC # 0.03 10*3/uL; Neutrophils % 83.3 % (38.7-73.9); Platelet Count 326 T/CUMM (130-400); Red Blood Count 3.01 MC/CUMM (3.8-5.5); White Blood Count 22.7 T/CUMM (4-12)
[2019-02-09 15:29] LABS: Hypochromasia 2+; Lymphocytes 8 % (20-55); Segmented Neutrophils 85 % (50-85); Total Cells Counted 100
[2019-02-09 15:30] LABS: Giant Platelets Few; Microcytosis Slight; Polychromasia Slight
[2019-02-09] MEDS: ACETAMINOPHEN 325 MG TABLET PO PRN (16:36)
[2019-02-09] MEDS ORDERED: PHENOL 1.4% THROAT SPRAY 177 ML BOTTLE PO PRN (16:59)
[2019-02-09] MEDS: MONTELUKAST 10 MG TABLET PO SCH (21:07)
[2019-02-09] MEDS: SODIUM CHLORIDE 0.9% 1,000 ML IV SCH (21:10)
[2019-02-10] MEDS: ALBUTEROL/IPRATROPIUM 3 ML NEB RESP TX SCH ×4 (00:35→20:45)
[2019-02-10] MEDS ORDERED: FLUCONAZOLE 200 MG TABLET PO ONE (07:30)
[2019-02-10] MEDS: SODIUM CHLORIDE 0.9% 1,000 ML IV SCH (08:24)
[2019-02-10] MEDS: INSULIN LISPRO 100 UNIT/ML SUBCUT SCH ×4 (08:25→20:45)
[2019-02-10] MEDS: PANTOPRAZOLE 40 MG VIAL IV SCH (08:44)
[2019-02-10] MEDS: GABAPENTIN 400 MG CAPSULE PO SCH ×2 (08:45→20:44)
[2019-02-10] MEDS: PIPERACILLIN/TAZOBACTAM 3,375 MG in SODIUM CHLORIDE 0.9% 100 ML IV SCH ×2 (08:45→17:37)
[2019-02-10] MEDS: INSULIN GLARGINE 100 UNIT/ML SUBCUT SCH (08:45)
[2019-02-10 11:33] LABS: Basophils # 0.1 10*3/uL (0.0-0.2); Basophils % 0.2 % (0.0-0.8); Eosinophils # 0.1 10*3/uL (0.0-0.87); Eosinophils % 0.3 % (0.00-10.9); Hematocrit 25.2 VOL% (35.7-47.0); Hemoglobin 7.9 GM/DL (12.0-16.0); Immature Granulocytes % 3.6 %; Immature Granulocytes Absolute 0.74 #; Lymphocytes # 1.1 10*3/uL (1.4-4.0); Lymphocytes % 5.3 % (21.3-54.2); Mean Corpuscular HGB Conc 31.3 GM/DL (32-36); Mean Platelet Volume 9.5 FL (9.6-12.0); Monocytes % 3.7 % (1.7-12.7); NRBC # 0.04 10*3/uL; Neutrophils % 86.9 % (38.7-73.9); Platelet Count 329 T/CUMM (130-400); White Blood Count 20.4 T/CUMM (4-12)
[2019-02-10 12:00] LABS: Band Neutrophils 13 % (0-10); Eosinophils 1 % (0-10); Lymphocytes 6 % (20-55); Nucleated Red Blood Cells 1 (0-5); Segmented Neutrophils 75 % (50-85); Total Cells Counted 100
[2019-02-10 12:01] LABS: Anisocytosis 2+; Macrocytosis 1+; Platelet Estimate Normal; Polychromasia Slight
[2019-02-10 12:02] LABS: Calcium 7.8 MG/DL (8.5-10.1); Osmolality,Calculated 284.1 MOS/KG (273-304)
[2019-02-10 12:05] LABS: Folate 13.7 NG/ML (5.4-24.0); Vitamin B12 > 2000 PG/ML (211-911)
[2019-02-10 12:07] LABS: % Iron Saturation 11.5 % (18-50); Ferritin 269.4 ng/ml (8-252)
[2019-02-10 12:41] LABS: Sedimentation Rate-Westergren 122 MM/HR (0-30)
[2019-02-10] MEDS: ENOXAPARIN 40 MG/0.4 ML SYRINGE SUBCUT SCH (13:02)
[2019-02-10] MEDS ORDERED: FLUCONAZOLE 100 MG TABLET PO ONE (17:54)
[2019-02-10] MEDS: MONTELUKAST 10 MG TABLET PO SCH (20:44)
[2019-02-11] MEDS: PIPERACILLIN/TAZOBACTAM 3,375 MG in SODIUM CHLORIDE 0.9% 100 ML IV SCH ×2 (00:56→09:20)
[2019-02-11] MEDS: ALBUTEROL/IPRATROPIUM 3 ML NEB RESP TX SCH ×2 (01:16→08:25)
[2019-02-11] MEDS: SODIUM CHLORIDE 0.9% 1,000 ML IV SCH (04:51)
[2019-02-11 06:51] LABS: Basophils % 0.3 % (0.0-0.8); Eosinophils # 0.1 10*3/uL (0.0-0.87); Eosinophils % 0.7 % (0.00-10.9); Hematocrit 24.2 VOL% (35.7-47.0); Hemoglobin 7.6 GM/DL (12.0-16.0); Immature Granulocytes % 2.7 %; Lymphocytes # 1.1 10*3/uL (1.4-4.0); Lymphocytes % 7.7 % (21.3-54.2); Mean Corpuscular HGB Conc 31.4 GM/DL (32-36); Mean Corpuscular Volume 89.6 FL (87-102); Mean Platelet Volume 9.6 FL (9.6-12.0); Monocytes % 4.2 % (1.7-12.7); NRBC # 0.02 10*3/uL; Neutrophils % 84.4 % (38.7-73.9); Platelet Count 318 T/CUMM (130-400); Red Cell Distribution Width 16.8 % (9.3-17.3); White Blood Count 14.8 T/CUMM (4-12)
[2019-02-11 07:06] LABS: Calcium 7.6 MG/DL (8.5-10.1); Osmolality,Calculated 287.8 MOS/KG (273-304)
[2019-02-11] MEDS ORDERED: LIDOCAINE 2% 20 ML VIAL ONE (07:29)
[2019-02-11] MEDS ORDERED: FLUCONAZOLE 100 MG TABLET PO SCH (09:00)
[2019-02-11 09:02] LABS: Hemoglobin A1 (Alkaline) 97.2 % (96.5-98.5); Hemoglobin A2 (Alkaline) 2.8 % (1.5-3.5)
[2019-02-11] MEDS: INSULIN LISPRO 100 UNIT/ML SUBCUT SCH ×2 (09:19→11:56)
[2019-02-11] MEDS: PANTOPRAZOLE 40 MG VIAL IV SCH (09:24)
[2019-02-11] MEDS: INSULIN GLARGINE 100 UNIT/ML SUBCUT SCH (09:25)
[2019-02-11] MEDS: GABAPENTIN 400 MG CAPSULE PO SCH (09:26)
[2019-02-11 12:14] VITALS: BP 161/73
[2019-02-11] MEDS: ENOXAPARIN 40 MG/0.4 ML SYRINGE SUBCUT SCH (13:24)
[2019-02-11] MEDS ORDERED: DOCUSATE SODIUM 100 MG CAPSULE PO SCH (21:00)
[2019-02-11] MEDS ORDERED: POLYETHYLENE GLYCOL POWDER 17 GM PACK PO SCH (21:00)
[2019-02-11] MEDS ORDERED: FERROUS SULFATE 325 MG TABLET PO SCH (21:00)
[2019-02-12] MEDS ORDERED: amLODIPine 5 MG TABLET PO SCH (09:00)
== END 2019-02-11 15:27 | disposition hospice, home (50) | DRG 853 ==
LOC: N.ED 17:14 → N.EDINP 20:23 → SUATTDRO 20:23 → N.ICU 21:10 → N.3E 02-04 22:54
PROVIDERS: ADMIT Internal Medicine; ATTEND Hospitalist